=== PATIENT | male | born 1970 ===

== ENCOUNTER 2020-06-20 18:30 | Outpatient (REF) | payer OTHER, SELFPAY ==
--- NOTE | 2020-06-20 10:30 | SKI_PTH ---
PATIENT: KEVIN SAMUELS LOC: [facility] U#:[id number] AGE/SX: 49/M ROOM: RE06/20/[address]: Vance Angelo DO : 1970 BED: DIS: 06/20/2020 SPEC #: [id number] RECD: 06/20/20 18:36 STATUS: ARABELLA REQ #: [id number] NICKY: 06/20/20 10:[address]: Vance Angelo DEPT: Surgical Specimen RECD BY: Emilie Blackman ENTERED: 06/20/20 18:36 SP TYPE: SKI OTHR DR: Sapphire Chavez Tissues: 1 - SKIN BIOPSY(SHAVE/PUNCH) Procedures: SKIN LEVEL 4 Comments: [id number]
== END 2020-06-20 18:50 ==
LOC: LBN 18:30
PROVIDERS: PCP Occupational Therapist; Visit Provider Otolaryngology Otolaryngology/Facial Plastic Surgery
DX: D23.62 Other benign neoplasm of skin of left upper limb, including shoulder (principal)
CPT/HCPCS: 88305